=== PATIENT | male | born 1990 | race African-American/Black ===

== ENCOUNTER 2020-04-18 06:13 | Emergency (ER) | payer SELFPAY ==
[~2020-04-18] VITALS: Ht 188 cm; Wt 75.0 kg
[2020-04-18 06:19] VITALS: Ht 188 cm; Wt 75.0 kg
[2020-04-18 06:52] LABS: BILIRUBIN NEGATIVE (NEGATIVE); KETONE NEGATIVE (NEGATIVE); NITRITE NEGATIVE (NEGATIVE); UROBILINOGEN NORMAL mg/dL (< 2)
[2020-04-18 06:53] LABS: CALC OSMOLALITY 272 mosm/kg (275-300); CALCIUM 9.4 mg/dL (8.5-10.1); CARBON DIOXIDE 25.9 mmol/L (21.0-32.0); CHLORIDE - SERUM 103 mmol/L (98-107); CREATININE - SERUM 1.4 mg/dL (0.6-1.3); GLUCOSE 93 mg/dL (74-106); POTASSIUM - SERUM 3.6 mmol/L (3.5-5.1); SODIUM 137 mmol/L (136-145); UREA NITROGEN 10 mg/dL (7-18); eGFR NON AFRICAN AMERICAN 64 mL/min (90-120)
[2020-04-18 06:56] LABS: UDS - AMPHET NEGATIVE QUAL (NEGATIVE); UDS - BARB NEGATIVE QUAL (NEGATIVE); UDS - BENZO NEGATIVE QUAL (NEGATIVE); UDS - COCAINE NEGATIVE QUAL (NEGATIVE); UDS - OPIATE NEGATIVE QUAL (NEGATIVE); UDS - PCP NEGATIVE QUAL (NEGATIVE); UDS - THC POSITIVE QUAL (NEGATIVE)
[2020-04-18 07:03] LABS: BASOPHILS 0.9 % (0-2); EOSINOPHILS 9.7 % (0-7); HEMATOCRIT 46.7 % (42.0-54.0); HEMOGLOBIN 16.4 g/dL (13.5-17.5); IMMATURE GRANULOCYTES 0.2 % (0-5); LYMPHOCYTES 46.4 % (15-50); MCHC 35.1 g/dL (31.0-37.0); MEAN PLATELET VOLUME 9.2 fL (7.4-10.4); NEUTROPHIL ABS# 1.44 10x3/uL (1.78-5.38); NEUTROPHILS 31.8 % (40-80); PLATELET COUNT 198 10x3/uL (130-400); RBC 5.13 10x6/uL (4.20-6.10); RDW 11.8 % (11.5-14.5); WBC 4.5 10x3/uL (4.8-10.8)
[2020-04-18 07:08] LABS: ALBUMIN 4.5 g/dL (3.4-5.0); ALKALINE PHOSPHATASE 62 U/L (30-120); ALT (SGPT) 24 U/L (10-68); BILIRUBIN - TOTAL 0.43 mg/dL (0.2-1.3); CKMB 0.6 U/L (0.0-3.6); CREATINE KINASE 200 UL (21-232); MAGNESIUM - SERUM 2.2 mg/dL (1.8-2.4); PROTEIN - SERUM 7.9 g/dL (6.4-8.2); TROPONIN-I < 0.017 ng/mL (0.000-0.060)
[2020-04-18 07:53] VITALS: BP 134/83
[2020-04-18 07:53] LABS: INR 1.01 (0.85-1.17); PROTIME 12.3 SECONDS (11.6-15.0)
[2020-04-18] MEDS ORDERED: IBUPROFEN800 MG PO (09:47)
[2020-04-18] MEDS ORDERED: CYCLOBENZAPRINE10 MG PO (09:47)
[2020-04-18] MEDS ORDERED: ACETAMINOPHEN500 M1 PO (09:47)
[2020-04-18] MEDS ORDERED: PEPCID40 MG PO (09:49)
== END 2020-04-18 10:09 | disposition home or self-care (01) ==
LOC: D.ER 06:13
PROVIDERS: Family Medicine
DX: R07.89 Other chest pain (principal); M54.2 Cervicalgia; M25.512 Pain in left shoulder